=== PATIENT | female | born 1960 | race Caucasian/White ===

== ENCOUNTER 2016-12-25 17:38 | Emergency (ER) | payer MEDICAID ==
[~2016-12-25] VITALS: Ht 177.8 cm; Wt 68.4 kg
[~2016-12-25 17:38] MED LIST: HYDR-3240 PO; HYDR10TA4 PO; LAMO25TA5 PO; OLAN7.5T3 PO; SULF1TAB24 PO; TRAZ100T15 PO
[2016-12-25 17:40] VITALS: BP 96/64
== END 2016-12-25 19:31 | disposition home or self-care (01) ==
LOC: ED 19:25
DX: M25.551 Pain in right hip (principal); G89.29 Other chronic pain; F17.210 Nicotine dependence, cigarettes, uncomplicated; F43.10 Post-traumatic stress disorder, unspecified
CPT/HCPCS: 99284

== ENCOUNTER 2017-05-08 19:41 | Emergency (ER) | payer MEDICAID ==
[~2017-05-08] VITALS: Ht 177.8 cm; Wt 72.0 kg
[2017-05-08 19:49] VITALS: BP 104/71
== END 2017-05-08 21:02 | disposition home or self-care (01) ==
LOC: ED 20:56
DX: K08.89 Other specified disorders of teeth and supporting structures (principal); G89.29 Other chronic pain; F43.10 Post-traumatic stress disorder, unspecified
CPT/HCPCS: 99283